=== PATIENT | female | born 1950 | race African-American/Black ===

== ENCOUNTER 2016-10-27 19:19 | Emergency (ER) | payer MEDICARE, SELFPAY ==
[~2016-10-27 19:19] MED LIST: ALEVE220 MG PO; ASAB PO; ASABAYER PO; BUM1 PO; COREG6 PO; COZAAR100 MG PO; CRESTOR20 MG PO; FLONASE NAS; FORTAMET500 MG PO; GLUMETZA500 MG PO; LEXAPRO20 PO; MICARDIS40 PO; MIRALAXPKT PO; PCET PO; SPIRO25 PO; SYMBICORT 80/4.1 INH INH; VENTOLIN HFA INH; WELLXL150 PO; ZYRTEC ALLGY10 MG PO; [UNRECOGNIZED DRUG - REMARK]
[2016-10-27 19:59] LABS: BASOPHILS 0.6 %; BASOPHILS ABSOLUTE 0.04 10/3/uL (0.0-0.16); EOSINOPHILS 11.7 %; ER CBC TAT 0 Hrs 08 Mins; HEMOGLOBIN 10.3 g/dL (12.0-16.0); IMMATURE GRANULOCYTES 0.1 %; IMMATURE GRANULOCYTES ABSOLUTE 0.01 10/3/uL (0.0-0.11); LYMPHOCYTES 43.9 %; LYMPHOCYTES ABSOLUTE 3.01 10/3/uL (0.67-4.30); MEAN CORPUS HGB CONC 33.6 g/dL (32.0-36.0); MEAN CORPUSCULAR HEMOGLOB 28.1 pg (26.0-34.0); MEAN CORPUSCULAR VOLUME 83.7 fL (80-100); MEAN PLATELET VOLUME 11.9 fL (9.2-13.0); MONOCYTES 9.8 %; MONOCYTES ABSOLUTE 0.67 10/3/uL (0.21-1.20); NEUTROPHILS 33.9 %; NEUTROPHILS ABSOLUTE 2.32 10/3/uL (2.02-8.40); PLATELET COUNT 201 10/3/uL (150-400); RBC DISTRIBUTION WIDTH 14.4 % (12.0-16.0); RED CELL COUNT 3.67 10/6/uL (4.0-5.6); WHITE BLOOD CELLS 6.9 10/3/uL (4.5-10.5)
[2016-10-27 20:01] LABS: HEMATOCRIT 30.7 % (36.0-48.0); MANUAL DIFF NO %
[2016-10-27 20:08] LABS: PARTIAL THROMBO TIME 26.9 SEC (22.5-37.2)
[2016-10-27 20:17] LABS: BUN (BLOOD UREA NITROGEN) 13 MG/DL (6-23); CALCIUM, SERUM 8.3 MG/DL (8.5-10.4); CHEST PAIN PROFILE TAT 0 Hrs 26 Mins; CHLORIDE, SERUM 103 MMOL/L (96-112); CO2 (CARBON DIOXIDE) 31 MMOL/L (24-34); CREATININE 1.02 MG/DL (0.55-1.02); GFR AFRICAN AMERICAN 67 ML/MIN (>=60); GFR NON AFRICAN AMERICAN 58 ML/MIN (>=60); GLUCOSE, SERUM 142 MG/DL (60-99); POTASSIUM, SERUM 3.2 MMOL/L (3.5-5.3); SODIUM, SERUM 142 MMOL/L (135-148); TROPONIN I <0.02 NG/ML (<0.05)
== END 2016-10-28 02:00 | disposition home or self-care (01) ==
LOC: ER 19:19
PROVIDERS: Emergency Medicine
DX: G89.18 Other acute postprocedural pain (principal); R07.9 Chest pain, unspecified; L23.7 Allergic contact dermatitis due to plants, except food; Z87.891 Personal history of nicotine dependence; I11.0 Hypertensive heart disease with heart failure; I50.9 Heart failure, unspecified; F32.9 Major depressive disorder, single episode, unspecified; E11.9 Type 2 diabetes mellitus without complications; Z86.73 Personal history of transient ischemic attack (TIA), and cerebral infarction without residual deficits; Z95.5 Presence of coronary angioplasty implant and graft; Z95.1 Presence of aortocoronary bypass graft; Z88.0 Allergy status to penicillin; Z88.8 Allergy status to other drugs, medicaments and biological substances; Z79.899 Other long term (current) drug therapy; Z79.84 Long term (current) use of oral hypoglycemic drugs
CPT/HCPCS: 71020; 71275; 80048; 83735; 84484; 85025; 85610; 85730; 93005; 96374; 99285; Q9967

== ENCOUNTER 2017-03-25 16:40 | Inpatient (IN) | payer MEDICARE ==
[~2017-03-25] VITALS: Ht 154.9 cm; Wt 72.4 kg
--- NOTE | ~2017-03-25 | OP ---
Record Of Operation [facility] [address] [place]. [address] NAME: KANWAL MERCEDES : 52 STATUS : ADM IN PAT#: [id number] AGE: 67 ADM/REG DATE : 03/25/17 MR#: [id number] REPORT SERV DATE: 03/27/17 DICTATED BY: MIKE SANTIAGO DATE: 03/27/17 REPORT STATUS : Draft TRANSCRIBED BY: MODL DATE: 03/27/17 DATE OF PROCEDURE: 03/27/2017 PREPROCEDURE DIAGNOSES: Respiratory failure and massive hemoptysis. POSTPROCEDURE DIAGNOSES: Respiratory failure and massive hemoptysis. PROCEDURE: Bronchoscopy surveillance. DESCRIPTION: Informed consent obtained from the son, both written and verbal. The patient was intubated on the ventilator and sedated, so unable to take consent. All questions were answered. Risks and side effects discussed with the son regarding the procedure. The patient was intubated on the ventilator on Precedex drip at the time of the procedure and not on any vasopressors. Start of the procedure, the patient had an O2 saturation of around 92% to 93%. Gave 4 mL of propofol as well for added sedation. She was on 100% FiO2 and under control mode of ventilation. I inserted the fiberoptic scope and immediately started seeing fresh bright red blood in the ET tube. I was suctioning that back and was able to make my way down to the distal trachea and jennifer and was visualizing copious amounts of bright red in blood that was encompassing both the jennifer and left and right mainstem bronchus. I started to suction some of the blood from the right mainstem bronchus and went into the upper lobe dissection as well and started to go to the right middle lobe and suction to clear the airway. In that amount of time which was less than a couple of minutes, her sats dropped down to 85%, and so I immediately pulled out to help her recover. In fact, we actually took off the ventilator and started bagging her to help get her O2 saturation up. We did a cycle of blood pressure and blood pressure which showed hypotension. We gave her 1 L of fluid bolus and started to mix some Levophed. I did decide at this point to abort the procedure. We were able to get her O2 saturation up into the 90s and her blood pressure did come up on its own without adding Levophed to the point where she was actually hypertensive. Subsequent critical care management is as follows which could be seen in subsequent orders and progress notes. CEP/MODL Mike Santiago, / [id number] CC: Amanda Sahu MD
--- NOTE | ~2017-03-25 | OP ---
Record Of Operation [facility] [address] [place]. [address] NAME: KANWAL MERCEDES : 52 STATUS : ADM IN PAT#: [id number] AGE: 67 ADM/REG DATE : 03/25/17 MR#: [id number] REPORT SERV DATE: 03/27/17 DICTATED BY: BEE CANTOR DATE: 03/27/17 REPORT STATUS : Draft TRANSCRIBED BY: CATALINO DATE: 03/27/17 DATE OF PROCEDURE: PROCEDURE: Placement of left femoral arterial line. REASON: The patient is hypotensive, on pressors; hypoxic respiratory failure, on APRV and needs frequent blood draws and blood gases. Risks and benefits of the procedure were discussed with the patient's family and consent was obtained. DESCRIPTION OF PROCEDURE: The left groin was prepped and draped in a sterile fashion. Lidocaine 1% was used as a local anesthetic. The left femoral artery was located using ultrasound guidance. Large bore needle was inserted into the left femoral artery with good blood return. Guidewire was threaded through the large bore needle, which was then removed and a 12 cm catheter was then placed through the guidewire with removal of the guidewire. The line was sewn in place with 2-0 silk. The catheter was then transduced with good waveform and good blood return. Sterile Biopatch and dressing were applied. /CATALINO Bee Cantor M.D. / [id number] CC: Amanda Sahu MD
--- NOTE | ~2017-03-25 | OP ---
Record Of Operation [facility] [address] [place]. [address] NAME: KANWAL MERCEDES : 52 STATUS : ADM IN [facility]#: [id number] AGE: 67 ADM/REG DATE : 03/25/17 MR#: [id number] REPORT SERV DATE: 04/03/17 DICTATED BY: ETO GAO DATE: 04/03/17 REPORT STATUS : Draft TRANSCRIBED BY: MODL DATE: 04/03/17 DATE OF PROCEDURE: 04/03/2017 TIME: 1245 hours. PROCEDURE: Endotracheal intubation. INDICATION: Acute respiratory failure. Pre-oxygenated 100% oxygen, monitored by blood pressure, EKG, and pulse oximetry. 40 of etomidate, 5 mL of propofol, and 50 mg of rocuronium used. Tube was seen to enter between cords. Confirmed by end-tidal CO2 monitor. Good breath sounds bilaterally. Sat 100%. Post chest x-ray ordered. RP/CATALINO Teo Gao M.D. / [id number] CC: Amanda Sahu MD
--- NOTE | ~2017-03-25 | OP ---
Record Of Operation [facility] [address] [place]. [address] NAME: KANWAL MERCEDES : 52 STATUS : ADM IN PAT#: [id number] AGE: 67 ADM/REG DATE : 03/25/17 MR#: [id number] REPORT SERV DATE: 03/27/17 DICTATED BY: BEE CANTOR DATE: 03/27/17 REPORT STATUS : Draft TRANSCRIBED BY: MODGaurang DATE: 03/27/17 DATE OF PROCEDURE: 03/27/2017 This is a 67-year-old patient, who was intubated for hypoxic respiratory failure secondary to hemoptysis and has become hypotensive and needs better IV access. This is an urgent situation. No consent was obtained from the family. The patient required placement of central line access. DESCRIPTION OF PROCEDURE: The right groin was prepped and draped in sterile fashion. Lidocaine 1% was used as local anesthetic. The right femoral vein was localized using ultrasound guidance. A large bore needle was inserted into the right femoral vein without difficulty and good blood returned. Guidewire was inserted over the large bore needle which was then removed. The site was dilated and a triple-lumen catheter was placed over a guidewire without difficulty. All three ports were flushed and good blood returned. The line was sewn in place with 2-0 silk and sterile Biopatch was applied. Sterile dressing was applied. /CATALINO Bee Cantor M.D. / [id number] CC: Amanda Sahu MD
--- NOTE | ~2017-03-25 | CN ---
Consultation Report [facility] [address] [place]. [address] NAME: KANWAL MERCEDES : 52 STATUS : ADM IN PAT#: [id number] AGE: 67 ADM/REG DATE : 03/25/17 MR#: [id number] REPORT SERV DATE: 03/27/17 DICTATED BY: BEE CANTOR DATE: 03/27/17 REPORT STATUS : Draft TRANSCRIBED BY: MODL DATE: 03/27/17 CONSULTATION DATE OF CONSULTATION: 03/27/2017 HISTORY OF PRESENT ILLNESS: This is a 67-year-old woman, who was admitted to the Hospitalist Service on the 03/26/2017 and has a known history of idiopathic pulmonary fibrosis, UIP, also chronic hypoxic respiratory failure, diastolic heart failure diabetes mellitus, and peripheral vascular disease, presents to the emergency room with hemoptysis of bright red blood. The patient was seen by the Pulmonary Service and it was thought initially that her mild hemoptysis was secondary to traction bronchiectasis. She was not on any blood thinners at home except for aspirin. The patient apparently was also started on cefepime. So, the patient was admitted to a monitored bed and then early on the morning of the 03/27/2017 at about 0530 hours, her hemoptysis worsened and it appears that she may have been hypotensive since she received a liter of bolus of IV fluid and was initially transferred to [facility]. Shortly after arrival to the [facility], the patient was made n.p.o. and there were plans to do a bronchoscopy on her later on the , however her hemoptysis then increased and she was not able to maintain an airway and required intubation, mechanical ventilation, and subsequent transferred to MICU. Upon arrival here, she was hypotensive, required placement of a central line, IV fluid bolus, and Levophed to sustain her blood pressure. After she received a bolus of IV fluids, her blood pressure improved, and she no longer required Levophed. So, currently she is here intubated secondary to hypoxic respiratory failure, gross hemoptysis. She is allergic to penicillins, wasp venom, and buspirone. CURRENT MEDICATIONS: While in the hospital are enteric-coated aspirin, Lipitor, she did receive 1 mg of Bumex daily, Wellbutrin, Coreg, Maxipime, vitamin D, Lexapro, NovoLog insulin sliding scale, Cozaar, Solu-Medrol. She was also on vancomycin and Zosyn. She was also on Esbriet for her pulmonary fibrosis. PAST MEDICAL HISTORY: Significant for: 1. Hypertension. 2. Diabetes mellitus type 2. 3. Coronary artery disease, status post open heart surgery. 4. Pneumonia. 5. Peripheral arterial disease. 6. Idiopathic pulmonary fibrosis with negative markers. 7. Ventral hernia. 8. She is status post hemorrhoidectomy. 9. . 10.Bilateral tubal ligation. 11.Right elbow surgery for severe dislocation. 12.Right hand surgery. FAMILY HISTORY: Significant for sarcoidosis in her son and coronary artery disease. Consultation Report [address] [address] NAME: KANWAL MERCEDES : 52 STATUS : ADM IN [facility]#: [id number] AGE: 67 ADM/REG DATE : 03/25/17 MR#: [id number] REPORT SERV DATE: 03/27/17 DICTATED BY: BEE CANTOR DATE: 03/27/17 REPORT STATUS : Draft TRANSCRIBED BY: CATALINO DATE: 03/27/17 SOCIAL HISTORY: She is . She used to work at [employer], but denies any significant exposures to dust, silica, or asbestos. She has remote history of smoking until 2003 and then quit in 2016. There is no history of alcohol abuse or recreational drug use. REVIEW OF SYSTEMS: Could not be obtained from the patient since she is orally intubated and sedated. PHYSICAL EXAMINATION: GENERAL: The patient is in moderate respiratory distress even intubated and has copious amounts of blood coming out of her endotracheal tube. VITAL SIGNS: Her heart rate is 114, respiratory rate is in the 20s, FiO2 she is on FiO2 of 100 and O2 saturations are in the high 80s to low 90s, blood pressure has been variable and has ranged from 117 systolic, 142 systolic after sedation it did drop to about 70 systolic. Her temperature is 97.6 axillary. SKIN: Warm and dry. HEENT: The head is atraumatic, normocephalic. Pupils are equal, round, and reactive to light and accommodation. Extraocular eye movements are intact. Sclerae anicteric. Conjunctivae are pink. Nasal mucosa is within normal limits. Oral mucosa is intubated. NECK: Supple without JVD, lymphadenopathy, or thyromegaly. LUNGS: Coarse bilateral breath sounds. CARDIAC: Reveals a regular rate and rhythm with no significant murmurs. ABDOMEN: Soft, nondistended. Bowel sounds are present, but diminished. No organosplenomegaly is appreciated. EXTREMITIES: Without cyanosis, clubbing, or edema. RECTAL/GENITAL: Deferred. Moncada is in place. NEUROLOGIC: The patient is able to move all extremities, but is limited secondary to sedation and the patient being intubated. LABORATORY DATA: Chest x-ray showed bilateral infiltrates, diffuse bronchoscopy done at the bedside by Dr. Santiago shows just diffuse hemorrhage throughout both lungs. Procalcitonin is less than 0.05. Sodium is 141, potassium is 3.9, chloride is 109, bicarb is 24, BUN is 27, creatinine is 1.15, glucose is 140, magnesium 2.2, phosphorus 6.3. Lactic acid level is 1.3. White cell count is 15.7, hemoglobin is 11, hematocrit is 34, platelet count is 198,000. PTT is 25, protime is 13.9, INR is 1.1. DIAGNOSTIC DATA: CTA of the chest done on the showed no evidence of pulmonary embolus. No thoracic aortic aneurysm or dissection, stable changes of fibrotic lung disease with peripheral reticulation and honeycombing compatible with UIP pattern, diffuse ground-glass density in the lungs, stable prominence level 6 lymph node measuring 1.5 to 2.3 cm, no other nodules that could be thought of or no other suspicious nodule seen. There is stable cardiomegaly with heavy coronary artery calcification. Echocardiogram done on the 13 of February showed normal left ventricular systolic function with an ejection fraction of 50%, mild inferior wall hypokinesis, [id number] mitral regurgitation with mild left atrial enlargement. No significant change from previous study in 10/2015. Repeat echocardiogram Consultation Report [address] [place]. [address] NAME: KANWAL MERCEDES : 52 STATUS : ADM IN [facility]#: [id number] AGE: 67 ADM/REG DATE : 03/25/17 MR#: [id number] REPORT SERV DATE: 03/27/17 DICTATED BY: BEE CANTOR DATE: 03/27/17 REPORT STATUS : Draft TRANSCRIBED BY: MODL DATE: 03/27/17 has been done this morning and preliminary results show no evidence of worsening of mitral regurgitation, final report is pending. Troponin during this hospitalization peaked at 0.66, currently is 0.15, at this point there is no reason to suspect that the patient has acute coronary artery ischemia, but we will closely follow her status. ASSESSMENT AND PLAN: 1. This is a critically ill patient with massive hemoptysis etiology, not entirely certain, but appears to be diffuse alveolar hemorrhage. The patient has had previous workup for rheumatologic diseases including Maxine's, lupus, and those have been negative. She had an open lung biopsy that confirmed the diagnosis and has been treated by Dr. Santiago as an outpatient with steroids and then Esbriet. Currently, she has developed hypoxic respiratory failure secondary to massive hemoptysis requiring intubation and mechanical ventilation. We did have issues after she arrived to the unit, where she was very difficult to oxygenate, and the plan will be to paralyze her, give factor VIIa, continue high-dose Solu-Medrol, give Lasix, and continue supportive care of the patient. At this point, trying to have take her to Interventional Radiology in this unstable condition would not be knott and we do not have a localized point source of bleeding at the moment. The case has been discussed with Dr. Santiago and so, we will continue steroids as indicated above. We will also repeat rheumatologic workup to see if there is anything different or new. Hopefully, then the hemoptysis will resolve. We will hold aspirin and any other further anticoagulation including DVT prophylaxis and apply SCDs. 2. With regard to her type 2 diabetes mellitus, we will continue sliding scale insulin. 3. UIP with traction bronchiectasis, currently on antibiotics. The procalcitonin is less than 0.05, hence we will discontinue the Vanco and then observe and then probably discontinue the cefepime as well. 4. Coronary artery disease. Echocardiogram performed. Awaiting final results. Does not appear to have ongoing ischemia at this time, but we will observe closely for any appearance of that of ischemia. Total time spent with the patient including bedside updating family was a total of 225 minutes commencing at 0645 a.m. and ending at 1000 a.m. For a total time of 225 minutes, 74 minutes for the first portion of her critical care time charge and then minus 10 minutes for placement of central line leading a 141 minutes. That would be charged at 30 minutes intervals of 30 minutes. The patient is in critical condition, respiratory failure with the potential for cardiac decompensation, renal decompensation, and neurologic decompensation. She needs frequent vent adjustments, adjustments of pressors, management of her lab abnormalities. She requires frequent adjustments of the ventilator, medications, and constant monitoring to prevent any further decompensation. /CATALINO Bee Cantor M.D. Consultation Report [address] [address] NAME: KANWAL MERCEDES : 52 STATUS : ADM IN [facility]#: [id number] AGE: 67 ADM/REG DATE : 03/25/17 MR#: [id number] REPORT SERV DATE: 03/27/17 DICTATED BY: BEE CANTOR DATE: 03/27/17 REPORT STATUS : Draft TRANSCRIBED BY: CATALINO DATE: 03/27/17 / [id number] CC: Amanda Sahu MD
--- NOTE | ~2017-03-25 | OP ---
Record Of Operation [facility] [address] [place]. [address] NAME: KANWAL MERCEDES : 52 STATUS : ADM IN PAT#: [id number] AGE: 67 ADM/REG DATE : 03/25/17 MR#: [id number] REPORT SERV DATE: 03/27/17 DICTATED BY: EBENEZER LUNA DATE: 03/27/17 REPORT STATUS : Draft TRANSCRIBED BY: MODL DATE: 03/27/17 DATE OF PROCEDURE: 03/27/2017 PULMONARY AND CRITICAL CARE MEDICINE INTUBATION NOTE. REASON FOR INTUBATION: Acute hypoxemic respiratory failure and hemoptysis. PREMEDICATION: Etomidate 20 mg IV x1 and rocuronium 50 mg IV x1 followed by propofol 5 mL x1. CONSENT: Emergent. PROCEDURE IN DETAIL: After being moved from intermediate care by Dr. Robert, Ms. Mercedes was briefly seen and noted to be hypoxemic with a sat in the mid 70s on 100% non-rebreather with active hemoptysis filling a coffee cup. She was premedicated with the above and emergently intubated using a #3 GlideScope which had been pre lubricated and a size 8.0 ET tube which had also been pre lubricated. There was a copious amount of bright red blood in her mouth and overlying her vocal cords, which was suctioned using the [place] catheter and the tube was passed to a depth of 22 cm at the lips on first attempt. Of note, she did become quite hypoxemic after intubation and her lowest sat was 61%, which improved with bagging and suctioning of the endotracheal tube which had filled with bright red blood immediately after it was placed. A followup chest x-ray pending at the time of this dictation. There was positive color change on the CO2 detector bilateral breath sounds and absent breath sounds over the fundus of the stomach with bagging after intubation. AZEEM/CATALINO Ebenezer Luna MD / [id number] CC: Ebenezer Luna MD
--- NOTE | ~2017-03-25 | HP ---
History And Physical [place] [id number] [facility] [place]. [address] NAME: KANWAL MERCEDES : 52 STATUS : ADM IN [facility]#: [id number] AGE: 67 ADM/REG DATE : 03/25/17 MR#: [id number] REPORT SERV DATE: 03/26/17 DICTATED BY: HERMES RAJAN DATE: 03/25/17 REPORT STATUS : Draft TRANSCRIBED BY: MODGaurang DATE: 03/25/17 DATE OF ADMISSION: 03/25/2017 CHIEF COMPLAINT: Coughing of bright red blood and shortness of breath. HISTORY OF PRESENT ILLNESS: This is a 67-year-old female with history of idiopathic pulmonary fibrosis, usual interstitial pneumonia, also has chronic hypoxic respiratory failure, diastolic heart failure, diabetes mellitus, and peripheral vascular disease, who presents to the emergency room at [facility] with the above- mentioned complaint. History is obtained from the patient and reviewing data available on the [employer] system. According to available data, Ms Mercedes had been in her usual state of health until about two days ago. She does have a chronic cough productive of thick viscid sputum, but in the last two days, she has seen bright red blood in it. She says this actually followed severe bout of coughing that she had two days ago. She describes it as less than a teaspoon full when she has it. Today, she was speaking to her Pulmonary physician's office and she had mentioned it to them. They called back and wanted her to go to the emergency room to be evaluated right away. During this time she has not had any fevers, chills, or any other symptoms. In the emergency room, she did have some hemoptysis, small volume, initial workup also revealed she had an elevated troponin level as well, and Hospitalist Service is asked to admit her for further evaluation and treatment. At the time of my evaluation, she denied any chest pain or palpitations. She had no orthopnea. She did have a cough productive of small volume hemoptysis. She has not had any fevers, chills, or weight loss. She denied any recent falls or loss of consciousness. No history of fevers, chills, nausea, vomiting, diarrhea, or dysuria. No history of recent hematemesis, hematochezia, or hematuria. No other history of recent travel or exposures other than those mentioned above. PAST MEDICAL HISTORY: Significant for usual interstitial pneumonia with interstitial pulmonary fibrosis, coronary artery disease, history of chronic hypoxic respiratory failure for which she uses supplemental oxygen at home on an as-needed basis. She also has diastolic heart failure, diabetes mellitus type 2, peripheral vascular disease, and a history of substance abuse. SOCIAL HISTORY: She has a long history of smoking, but quit in 2003, since then she had taken up marijuana which she also quit in 2016. Since then, she has had not smoked. She uses alcohol occasionally. Denied any other recreational drugs other than those mentioned above. FAMILY HISTORY: Noncontributory. MEDICATIONS: Her medications at home were reviewed by me in the chart today and reordered by History And Physical [address] [address] NAME: KANWAL MERCEDES : 52 STATUS : ADM IN PAT#: [id number] AGE: 67 ADM/REG DATE : 03/25/17 MR#: [id number] REPORT SERV DATE: 03/26/17 DICTATED BY: HERMES RAJAN DATE: 03/25/17 REPORT STATUS : Draft TRANSCRIBED BY: CATALINO DATE: 03/25/17 me. REVIEW OF SYSTEMS: As in history of present illness. All other systems were reviewed in detail and are quite unremarkable. PHYSICAL EXAMINATION: GENERAL: This is a pleasant 67-year-old not in any acute distress. HEENT: Her head is atraumatic and normocephalic. She is alert, awake, oriented to time, place, and person. Pupils are equal, reacting to light and accommodating. External ocular muscles are intact. Membranes are moist and pink. Sclerae are nonicteric. NECK: Supple with no jugular venous distention, lymphadenopathy, or thyromegaly. LUNGS: Auscultation of her lungs revealed fair to moderate air entry bilaterally with bibasilar rales. There were no expiratory wheezes. Trachea appeared to be in the midline. HEART: Auscultation of her heart revealed normal rate and rhythm with no murmurs, rubs, or gallops appreciated. ABDOMEN: Soft and nontender. Bowel sounds are present. EXTREMITIES: No cyanosis, clubbing, or edema. NEURO: Grossly intact. No focal sensory or motor deficits. Higher functions appeared intact. Gait was not examined. She was able to move all four extremities. VITAL SIGNS: Her temperature was 97.6, pulse 78, respirations 16 a minute, blood pressure was 146/79, and oxygen saturations were 96% breathing 2 L of oxygen via nasal cannula. LABORATORY DATA: Reviewed on the [employer] system showed a normal CMP with a creatinine of 1.08, which is about her baseline. Her troponin was 0.66 today. CBC showed a normal white blood cell count, hemoglobin 11.3, hematocrit of 34, and platelet count was 171,000. Urinalysis was not performed today. Films of the CT of the chest were reviewed by me on the PACS today and interpreted by me. Per my interpretation, there are bilateral subpleural fibrosis with bibasilar fibrosis and traction bronchiectasis in the bases as well. No other lobar consolidations or effusions are seen. IMPRESSION: 1. Hemoptysis. 2. Elevated troponin. 3. Chest pain. 4. Acute exacerbation of interstitial pulmonary fibrosis and usual interstitial pneumonia. 5. Chronic hypoxic respiratory failure. 6. Diastolic congestive heart failure. 7. Diabetes mellitus type 2. 8. Coronary artery disease. History And Physical [address] [address] NAME: KANWAL MERCEDES : 52 STATUS : ADM IN [facility]#: [id number] AGE: 67 ADM/REG DATE : 03/25/17 MR#: [id number] REPORT SERV DATE: 03/26/17 DICTATED BY: HERMES RAJAN DATE: 03/25/17 REPORT STATUS : Draft TRANSCRIBED BY: MODGaurang DATE: 03/25/17 PLAN: We will admit Ms Mercedes to the Hospitalist Service with telemetry for close monitoring. Her hemoptysis is probably secondary to her traction bronchiectasis and fibrosis. We will start her on empiric IV antibiotics, bronchodilators, and continue her supplemental oxygen therapy. We will also start her on intravenous steroids for acute exacerbation of her interstitial pulmonary fibrosis and UIP. We will also place her on blood sugar control with NovoLog given subcutaneously per sliding scale, and continue all other medications and treatments that she has been on including Pirfenidone. We will also follow serial troponins to rule out acute coronary syndrome, although this may be secondary to demand ischemia. Due to her pulmonary hemorrhaging we cannot start any heparin products at this time anyway. If necessary, we may go ahead and consult Cardiology Service to see her tomorrow. We will be placing her on SCDs and thromboembolic deterrent stockings for tonight for DVT prophylaxis. We will also consult Dr. Santiago, her field court researcher, to see her in the morning. I have discussed the above plans with the patient. Her questions were answered and she is agreeable to the above recommendations. /CATALINO Hermes Rajan M.D. / [id number] CC: Joshua Diaz MD
--- NOTE | ~2017-03-25 | CN ---
Consultation Report [facility] [address] [place]. [address] NAME: DIANE MERCEDES : 52 STATUS : ADM IN PAT#: [id number] AGE: 67 ADM/REG DATE : 03/25/17 MR#: [id number] REPORT SERV DATE: 03/26/17 DICTATED BY: MORALES BARAHONA DATE: 03/26/17 REPORT STATUS : Draft TRANSCRIBED BY: MODL DATE: 03/26/17 CONSULT NOTE DATE OF CONSULTATION: 03/26/2017 CHIEF COMPLAINT: Hemoptysis in a patient with idiopathic pulmonary fibrosis. HISTORY OF PRESENT ILLNESS: Mrs. Diane Mercedes is a very pleasant 67-year-old female with a past medical history significant for idiopathic pulmonary fibrosis, currently on an antifibrotic, coronary artery disease, status post CABG, and peripheral vascular disease, who presents to [facility]'s Emergency Room with complaints of mild hemoptysis. It should be noted that the patient has not been hospitalized recently and has done fairly well as an outpatient. Mrs. Mercedes is followed by Dr. Santiago in our outpatient clinic. She does have nebulized medications that she takes periodically for her breathing. She is unable to name the specific agents today. The patient does have supplemental oxygen at home, which she uses on an as-needed basis. The patient quit smoking in 2003, prior to this time, she smoked approximately two and half packs a day for a period of twenty years. She has smoked marijuana in the past. The patient does have known obstructive sleep apnea, but does not currently wear her CPAP machine at hour of sleep. She states that her exercise tolerance is somewhat limited, being able to walk approximately half a city block before experiencing some degree of shortness of breath. Again, Mrs. Mercedes is familiar to our Pulmonary Service. She was seen in 2016 in the hospital and was eventually diagnosed with idiopathic pulmonary fibrosis. She has been initiated on an antifibrotic agent. She has had some dermatologic issues with the medication and her dosages have been lowered. Otherwise, she has been tolerating the medications well. More recently, she had a strong coughing fit, which produced a quarter- size amount of bright red blood on the tissue. She contacted our office and was referred to the emergency room for further assessment. Upon arrival, the patient was found to be normotensive and afebrile. She had good oxygenation on room air. Initial blood work revealed a white blood cell count of 5100. CTA of the chest was performed, which did not reveal any PE. Traction bronchiectasis and fibrotic changes were noted. There is some stable mediastinal lymph nodes appreciated as well. There is some basilar atelectasis or possible edema appreciated as well. For the aforementioned reasons, she has been referred to the Pulmonary Service for further assessment. Currently, Mrs. Mercedes has not hemoptysed this morning. She states that she is breathing without difficulty. She denies any wheezing or worsening shortness of breath. She denies any pleuritic pain. She is not producing any purulent sputum. Consultation Report [place] [id number] [facility] [place]. [address] NAME: DIANE MERCEDES : 52 STATUS : ADM IN [facility]#: [id number] AGE: 67 ADM/REG DATE : 03/25/17 MR#: [id number] REPORT SERV DATE: 03/26/17 DICTATED BY: MORALES BARAHONA DATE: 03/26/17 REPORT STATUS : Draft TRANSCRIBED BY: CATALINO DATE: 03/26/17 The patient does have known cardiac issues including coronary artery disease, some mild-to- moderate mitral regurgitation. She does have known hypertension. She currently denies any murmurs, angina, or palpitations. She denies any orthopnea or dependent edema. In regard to constitutional symptoms, she currently denies fever, chills, nausea, vomiting, chest pain, abdominal pain, or edema. PAST MEDICAL HISTORY: 1. Coronary artery disease, status post CABG. 2. Hypertension. 3. Diabetes mellitus. 4. Peripheral arterial disease. 5. Pneumonia. 6. Idiopathic pulmonary fibrosis. 7. Ventral hernia. PAST SURGICAL HISTORY: 1. CABG. 2. Hemorrhoidectomy. 3. . 4. Bilateral tubal ligation. 5. Right elbow surgery for severe dislocation. 6. Right hand surgery. FAMILY HISTORY: The patient states that her son has sarcoidosis. There is also a strong family history of coronary artery disease. SOCIAL HISTORY: The patient is . She previously worked at [employer] and denies any known exposures to dust, silica, or asbestos. TOBACCO/ALCOHOL: As previously mentioned, the patient quit smoking in 2003, prior to this time, she smoked approximately two and half packs a day for a period of twenty years. She does use marijuana in the past. She denies any other illicit drug use or excessive alcohol use. MEDICATIONS: Aspirin 81 mg, Bumex 1 mg, bupropion 150 mg, carvedilol 6.25 mg, Lexapro 20 mg, loratadine 10 mg, losartan 100 mg, metformin 500 mg, Esbriet 267 mg, rosuvastatin 20 mg, spironolactone 25 mg. ALLERGIES: THE PATIENT HAS KNOWN ALLERGY TO PENICILLIN. REVIEW OF SYSTEMS: A complete review of systems was performed with pertinent positives and negatives contained within the body of the HPI. Consultation Report [place] [id number] [place]. [address] NAME: DIANE MERCEDES : 52 STATUS : ADM IN [facility]#: [id number] AGE: 67 ADM/REG DATE : 03/25/17 MR#: [id number] REPORT SERV DATE: 03/26/17 DICTATED BY: MORALES BARAHONA DATE: 03/26/17 REPORT STATUS : Draft TRANSCRIBED BY: CATALINO DATE: 03/26/17 PHYSICAL EXAMINATION: VITAL SIGNS: Blood pressure is 114/69, heart rate 76, T-max is 96.6, respiratory rate is 18, SpO2 is 98% on room air. GENERAL: Mrs. Diane Mercedes is a very pleasant 67-year-old, female, who is not currently exhibiting any signs of acute distress. SKIN: Skin with appropriate texture, turgor. No rashes, lesions, or ulcers. HEENT: Head: Skull is normocephalic, atraumatic. Eyes: Sclerae anicteric. Ears: Auricles and tragus without pain to palpation. Nose: Bilateral nasal patency. Throat: The patient is edentulous in the uppers. NECK: Neck is supple. Trachea midline. No cervical lymphadenopathy appreciated. THORAX/LUNGS: Clear breath sounds throughout. CARDIOVASCULAR: Regular rate and rhythm. No murmurs, rubs, or gallops. Anterior chest without thrills, heaves, or lifts. ABDOMEN: Abdomen is soft, nontender. Ventral hernia appreciated. PERIPHERAL VASCULAR: No edema. Varicosities are appreciated, MUSCULOSKELETAL: Full AROM and PROM in all joints. NEUROLOGIC: Cranial nerves 2-12 grossly intact. PSYCHIATRIC: The patient is alert and oriented x3. ACCESSORY DATA: Reveals a potassium of 3.4, magnesium and phos are low, creatinine is 1.17. White blood cell count is 5200. Lung biopsy confirms a pattern consistent with usual interstitial pneumonitis. Echocardiogram reveals a left ventricular ejection fraction of 50% as well as some [id number] mitral regurg. IMPRESSION: 1. Mild hemoptysis. 2. Idiopathic pulmonary fibrosis. 3. Demand ischemia. 4. [id number] mitral regurg. PLAN: 1. At this time, her hemoptysis is likely secondary to her traction bronchiectasis as a result of her idiopathic pulmonary fibrosis. Her anticoagulation has been held currently. We will certainly surveil her moving forward for continuing hemoptysis. That being said, I do not think we need to pursue bronchoscopy today. 2. In regard to the patient's idiopathic pulmonary fibrosis, it is not entirely clear that she is having an exacerbation today. We will attempt to transition her to p.o. steroids. We will check a procalcitonin in hopes to deescalate her antibiotics. She will continue her antifibrotic agents. We will move her outpatient followup forward as we want to follow her closely. 3. In regard to the patient's elevated troponin, this is likely secondary to demand ischemia. That being said, Cardiology is scheduled to see the patient today. 4. The patient does have some electrolyte abnormalities, which we will correct today. The aforementioned impression and plan have been discussed with Dr. Garcia, who will follow further recommendations. Consultation Report [address] [place]. [address] NAME: DAINE MERCEDES : 52 STATUS : ADM IN [facility]#: [id number] AGE: 67 ADM/REG DATE : 03/25/17 MR#: [id number] REPORT SERV DATE: 03/26/17 DICTATED BY: MORALES BARAHONA DATE: 03/26/17 REPORT STATUS : Draft TRANSCRIBED BY: MODL DATE: 03/26/17 We thank you for this consult and look forward to participating in the care of Mrs. Diane Mercedes. XANDER/MODL Morales Barahona PA-C / [id number] CC: Joshua Diaz MD
[2017-03-25 19:18] LABS: BASOPHILS 0.8 %; BASOPHILS ABSOLUTE 0.04 10/3/uL (0.0-0.16); EOSINOPHILS 9.3 %; EOSINOPHILS ABSOLUTE 0.48 10/3/uL (0.0-0.53); ER CBC TAT 0 Hrs 11 Mins; HEMOGLOBIN 11.3 g/dL (12.0-16.0); IMMATURE GRANULOCYTES 0.2 %; IMMATURE GRANULOCYTES ABSOLUTE 0.01 10/3/uL (0.0-0.11); LYMPHOCYTES 45.9 %; LYMPHOCYTES ABSOLUTE 2.36 10/3/uL (0.67-4.30); MEAN CORPUS HGB CONC 33.2 g/dL (32.0-36.0); MEAN CORPUSCULAR HEMOGLOB 27.6 pg (26.0-34.0); MEAN CORPUSCULAR VOLUME 82.9 fL (80-100); MONOCYTES 11.7 %; NEUTROPHILS 32.1 %; NEUTROPHILS ABSOLUTE 1.65 10/3/uL (2.02-8.40); PLATELET COUNT 171 10/3/uL (150-400); RBC DISTRIBUTION WIDTH 14.1 % (12.0-16.0); WHITE BLOOD CELLS 5.1 10/3/uL (4.5-10.5)
[2017-03-25 19:19] LABS: MANUAL DIFF NO %
[2017-03-25 19:39] LABS: A/G RATIO 0.9 (0.7-1.9); ALBUMIN 3.8 G/DL (3.5-5.0); ALKALINE PHOSPHATASE 79 U/L (45-117); BUN (BLOOD UREA NITROGEN) 20 MG/DL (6-23); CALCIUM, SERUM 8.4 MG/DL (8.5-10.4); CHLORIDE, SERUM 104 MMOL/L (96-112); CO2 (CARBON DIOXIDE) 30 MMOL/L (24-34); CREATININE 1.08 MG/DL (0.55-1.02); GFR AFRICAN AMERICAN 62 ML/MIN (>=60); GFR NON AFRICAN AMERICAN 53 ML/MIN (>=60); GLOBULIN 4.2 G/DL (2.5-4.1); SGPT(ALT) 35 U/L (5-65); SODIUM, SERUM 140 MMOL/L (135-148); TOTAL BILIRUBIN 0.6 MG/DL (0-1.2)
[2017-03-25 19:40] LABS: GLUCOSE, SERUM 72 MG/DL (60-99); POTASSIUM, SERUM 4.2 MMOL/L (3.5-5.3); SGOT(AST) 42 U/L (5-40)
[2017-03-25 19:42] LABS: TROPONIN I 0.66 NG/ML (<0.05)
[2017-03-25] MEDS ORDERED: BUM1 PO (21:02)
[2017-03-25] MEDS ORDERED: FORTAMET500 MG PO (21:02)
[2017-03-25] MEDS ORDERED: COREG6 PO (21:02)
[2017-03-25] MEDS ORDERED: SPIRO25 PO (21:02)
[2017-03-25] MEDS ORDERED: WELLXL150 PO (21:03)
[2017-03-25] MEDS ORDERED: HALF81 PO (21:03)
[2017-03-25] MEDS ORDERED: COZAAR100 MG PO (21:03)
[2017-03-25] MEDS ORDERED: LEXAPRO20 PO (21:04)
[2017-03-25] MEDS ORDERED: CRESTOR20 MG PO (21:04)
[2017-03-25] MEDS ORDERED: FLONASE NAS (21:04)
[2017-03-25] MEDS ORDERED: ESBRIET267C PO (21:05)
[2017-03-25] MEDS ORDERED: VITAMIN D31000 UNIT PO (21:05)
[2017-03-25] MEDS ORDERED: TRIAMCINOLONE C80 GM TOP (21:06)
[2017-03-25] MEDS ORDERED: CLARIT10 PO (21:07)
[2017-03-26 03:37] LABS: BASOPHILS 0.4 %; BASOPHILS ABSOLUTE 0.02 10/3/uL (0.0-0.16); EOSINOPHILS 3.7 %; EOSINOPHILS ABSOLUTE 0.19 10/3/uL (0.0-0.53); HEMATOCRIT 35.5 % (36.0-48.0); HEMOGLOBIN 11.6 g/dL (12.0-16.0); IMMATURE GRANULOCYTES 0.2 %; IMMATURE GRANULOCYTES ABSOLUTE 0.01 10/3/uL (0.0-0.11); LYMPHOCYTES 28.7 %; LYMPHOCYTES ABSOLUTE 1.49 10/3/uL (0.67-4.30); MEAN CORPUS HGB CONC 32.7 g/dL (32.0-36.0); MEAN CORPUSCULAR HEMOGLOB 27.1 pg (26.0-34.0); MEAN CORPUSCULAR VOLUME 82.9 fL (80-100); MEAN PLATELET VOLUME 11.3 fL (9.2-13.0); MONOCYTES 5.2 %; MONOCYTES ABSOLUTE 0.27 10/3/uL (0.21-1.20); NEUTROPHILS 61.8 %; NEUTROPHILS ABSOLUTE 3.21 10/3/uL (2.02-8.40); PLATELET COUNT 167 10/3/uL (150-400); RBC DISTRIBUTION WIDTH 14.3 % (12.0-16.0); RED CELL COUNT 4.28 10/6/uL (4.0-5.6); WHITE BLOOD CELLS 5.2 10/3/uL (4.5-10.5)
[2017-03-26 03:38] LABS: MANUAL DIFF NO %
[2017-03-26 04:02] LABS: CK-MB 1.6 NG/ML; CPK 172 U/L (0-200); PHOSPHORUS, SERUM 1.9 MG/DL (2.5-4.5); TROPONIN I 0.32 NG/ML (<0.05)
[2017-03-26 04:16] LABS: BUN (BLOOD UREA NITROGEN) 19 MG/DL (6-23); CALCIUM, SERUM 8.9 MG/DL (8.5-10.4); CHLORIDE, SERUM 104 MMOL/L (96-112); CO2 (CARBON DIOXIDE) 31 MMOL/L (24-34); CREATININE 1.17 MG/DL (0.55-1.02); GFR AFRICAN AMERICAN 56 ML/MIN (>=60); GFR NON AFRICAN AMERICAN 49 ML/MIN (>=60); POTASSIUM, SERUM 3.4 MMOL/L (3.5-5.3); SODIUM, SERUM 139 MMOL/L (135-148)
[2017-03-26 04:21] LABS: GLUCOSE, SERUM 134 MG/DL (60-99)
[2017-03-26 10:06] LABS: PROCALCITONIN 0.06 ng/mL (<0.5)
[2017-03-26 11:28] LABS: CPK 166 U/L (0-200)
[2017-03-26 11:30] LABS: CK-MB 1.3 NG/ML; TROPONIN I 0.15 NG/ML (<0.05)
[2017-03-27 05:19] LABS: BASOPHILS 0.1 %; BASOPHILS ABSOLUTE 0.01 10/3/uL (0.0-0.16); EOSINOPHILS 0.1 %; EOSINOPHILS ABSOLUTE 0.01 10/3/uL (0.0-0.53); HEMATOCRIT 33.6 % (36.0-48.0); IMMATURE GRANULOCYTES 0.3 %; IMMATURE GRANULOCYTES ABSOLUTE 0.04 10/3/uL (0.0-0.11); LYMPHOCYTES 12.1 %; MEAN CORPUS HGB CONC 32.7 g/dL (32.0-36.0); MEAN CORPUSCULAR HEMOGLOB 27.2 pg (26.0-34.0); MEAN PLATELET VOLUME 12.1 fL (9.2-13.0); MONOCYTES 10.9 %; MONOCYTES ABSOLUTE 1.72 10/3/uL (0.21-1.20); NEUTROPHILS 76.5 %; NEUTROPHILS ABSOLUTE 12.05 10/3/uL (2.02-8.40); PLATELET COUNT 188 10/3/uL (150-400); RBC DISTRIBUTION WIDTH 14.5 % (12.0-16.0); RED CELL COUNT 4.05 10/6/uL (4.0-5.6)
[2017-03-27 05:22] LABS: MANUAL DIFF NO %; WHITE BLOOD CELLS 15.7 10/3/uL (4.5-10.5)
[2017-03-27 05:36] LABS: CHLORIDE, SERUM 107 MMOL/L (96-112); CREATININE 1.35 MG/DL (0.55-1.02); GFR AFRICAN AMERICAN 47 ML/MIN (>=60); GFR NON AFRICAN AMERICAN 41 ML/MIN (>=60); GLUCOSE, SERUM 129 MG/DL (60-99); POTASSIUM, SERUM 3.6 MMOL/L (3.5-5.3); SODIUM, SERUM 141 MMOL/L (135-148)
[2017-03-27 05:37] LABS: BUN (BLOOD UREA NITROGEN) 27 MG/DL (6-23); CO2 (CARBON DIOXIDE) 25 MMOL/L (24-34)
[2017-03-27 05:52] LABS: A/G RATIO 0.9 (0.7-1.9); ALBUMIN 3.4 G/DL (3.5-5.0); ALKALINE PHOSPHATASE 73 U/L (45-117); GLOBULIN 3.8 G/DL (2.5-4.1); SGOT(AST) 55 U/L (5-40); SGPT(ALT) 48 U/L (5-65); TOTAL BILIRUBIN 0.6 MG/DL (0-1.2); TOTAL PROTEIN 7.2 G/DL (6.0-8.5)
[2017-03-27 07:37] LABS: BASOPHILS 0.1 %; BASOPHILS ABSOLUTE 0.02 10/3/uL (0.0-0.16); EOSINOPHILS 0.1 %; EOSINOPHILS ABSOLUTE 0.02 10/3/uL (0.0-0.53); HEMATOCRIT 34.4 % (36.0-48.0); HEMOGLOBIN 11.2 g/dL (12.0-16.0); IMMATURE GRANULOCYTES 0.3 %; IMMATURE GRANULOCYTES ABSOLUTE 0.05 10/3/uL (0.0-0.11); LYMPHOCYTES ABSOLUTE 2.83 10/3/uL (0.67-4.30); MEAN CORPUS HGB CONC 32.6 g/dL (32.0-36.0); MEAN CORPUSCULAR VOLUME 82.9 fL (80-100); MEAN PLATELET VOLUME 11.3 fL (9.2-13.0); MONOCYTES 11.8 %; MONOCYTES ABSOLUTE 1.85 10/3/uL (0.21-1.20); NEUTROPHILS 69.7 %; NEUTROPHILS ABSOLUTE 10.91 10/3/uL (2.02-8.40); PLATELET COUNT 198 10/3/uL (150-400); RBC DISTRIBUTION WIDTH 14.7 % (12.0-16.0); RED CELL COUNT 4.15 10/6/uL (4.0-5.6); WHITE BLOOD CELLS 15.7 10/3/uL (4.5-10.5)
[2017-03-27 07:38] LABS: MANUAL DIFF NO %
[2017-03-27 07:45] LABS: INTERNATIONAL NORMAL RATI 1.1 UNITS (-); PARTIAL THROMBO TIME 25.2 SEC (22.5-37.2); PROTIME (NOT ORD) 13.8 SEC (12.0-14.5)
[2017-03-27 07:56] LABS: LACTATE 1.3 MMOL/L (0.3-2.4)
[2017-03-27 07:58] LABS: BUN (BLOOD UREA NITROGEN) 27 MG/DL (6-23); CALCIUM, SERUM 7.6 MG/DL (8.5-10.4); CHLORIDE, SERUM 109 MMOL/L (96-112); CO2 (CARBON DIOXIDE) 24 MMOL/L (24-34); CREATININE 1.15 MG/DL (0.55-1.02); GFR AFRICAN AMERICAN 57 ML/MIN (>=60); GFR NON AFRICAN AMERICAN 50 ML/MIN (>=60); GLUCOSE, SERUM 140 MG/DL (60-99); PHOSPHORUS, SERUM 6.3 MG/DL (2.5-4.5); POTASSIUM, SERUM 3.9 MMOL/L (3.5-5.3); SODIUM, SERUM 141 MMOL/L (135-148)
[2017-03-27 08:06] LABS: PROCALCITONIN <0.05 ng/mL (<0.5)
[2017-03-27 09:57] LABS: BE (BASE EXCESS) -2.3 MEQ/L (0 +/- 2.5); CARBOXYHEMOGLOBIN 0.7 % (0-3); HCO3 (ACTUAL BICARBONATE) 22.7 MEQ/L (23-27); HEMOBLOGIN CONTENT 12.2 G/DL (12-16); INSTRUMENT SERIAL # 8083; METHEMOGLOBIN 0.1 % (0-3); O2 CONTENT 15.6 VOL% (18-24); PCO2 (CO2 TENSION) 40 MMHG (35-45); PO2 (O2 TENSION) 63 MMHG (79-93); pH 7.38 (7.37-7.43)
[2017-03-27 09:58] LABS: ALLENS TEST Pos; MODE APRV; OPERATOR ID 35784; SAMPLE Arterial
[2017-03-27 13:19] LABS: BASOPHILS 0.1 %; BASOPHILS ABSOLUTE 0.01 10/3/uL (0.0-0.16); EOSINOPHILS 0 %; HEMATOCRIT 36.9 % (36.0-48.0); IMMATURE GRANULOCYTES 0.2 %; IMMATURE GRANULOCYTES ABSOLUTE 0.02 10/3/uL (0.0-0.11); LYMPHOCYTES 7.3 %; LYMPHOCYTES ABSOLUTE 0.87 10/3/uL (0.67-4.30); MEAN CORPUS HGB CONC 32.5 g/dL (32.0-36.0); MEAN CORPUSCULAR VOLUME 82.9 fL (80-100); MEAN PLATELET VOLUME 11.2 fL (9.2-13.0); MONOCYTES 8.7 %; MONOCYTES ABSOLUTE 1.04 10/3/uL (0.21-1.20); NEUTROPHILS 83.7 %; NEUTROPHILS ABSOLUTE 10.03 10/3/uL (2.02-8.40); PLATELET COUNT 153 10/3/uL (150-400); RBC DISTRIBUTION WIDTH 14.8 % (12.0-16.0); RED CELL COUNT 4.45 10/6/uL (4.0-5.6)
[2017-03-27 13:20] LABS: MANUAL DIFF NO %
[2017-03-27 13:33] LABS: COMPLEMENT C4 20.2 MG/DL (16-47)
[2017-03-27 13:34] LABS: PHOSPHORUS, SERUM 4.9 MG/DL (2.5-4.5)
[2017-03-27 14:11] LABS: SED RATE 16 MM/HR (0-20)
[2017-03-27 15:11] LABS: INSTRUMENT SERIAL # 8083; pH 7.44 (7.37-7.43)
[2017-03-27 15:12] LABS: CARBOXYHEMOGLOBIN 0.4 % (0-3); HCO3 (ACTUAL BICARBONATE) 19.1 MEQ/L (23-27); HEMOBLOGIN CONTENT 12.4 G/DL (12-16); METHEMOGLOBIN 0.2 % (0-3); MODE APRV; PCO2 (CO2 TENSION) 29 MMHG (35-45); PO2 (O2 TENSION) 65 MMHG (79-93); SAMPLE Arterial
[2017-03-27 15:38] LABS: BASOPHILS 0 %; EOSINOPHILS 0 %; HEMATOCRIT 34.1 % (36.0-48.0); HEMOGLOBIN 11.5 g/dL (12.0-16.0); IMMATURE GRANULOCYTES 0.3 %; IMMATURE GRANULOCYTES ABSOLUTE 0.03 10/3/uL (0.0-0.11); LYMPHOCYTES 6.1 %; LYMPHOCYTES ABSOLUTE 0.72 10/3/uL (0.67-4.30); MEAN CORPUS HGB CONC 33.7 g/dL (32.0-36.0); MEAN CORPUSCULAR HEMOGLOB 27.6 pg (26.0-34.0); MEAN CORPUSCULAR VOLUME 81.8 fL (80-100); MEAN PLATELET VOLUME 11.4 fL (9.2-13.0); MONOCYTES 9.4 %; MONOCYTES ABSOLUTE 1.11 10/3/uL (0.21-1.20); NEUTROPHILS 84.2 %; NEUTROPHILS ABSOLUTE 9.91 10/3/uL (2.02-8.40); PLATELET COUNT 150 10/3/uL (150-400); RBC DISTRIBUTION WIDTH 14.5 % (12.0-16.0); RED CELL COUNT 4.17 10/6/uL (4.0-5.6); WHITE BLOOD CELLS 11.8 10/3/uL (4.5-10.5)
[2017-03-27 15:39] LABS: MANUAL DIFF NO %
[2017-03-27 15:58] LABS: BUN (BLOOD UREA NITROGEN) 29 MG/DL (6-23); CHLORIDE, SERUM 106 MMOL/L (96-112); CO2 (CARBON DIOXIDE) 22 MMOL/L (24-34); CREATININE 1.31 MG/DL (0.55-1.02); GFR AFRICAN AMERICAN 49 ML/MIN (>=60); GFR NON AFRICAN AMERICAN 42 ML/MIN (>=60); PHOSPHORUS, SERUM 4.7 MG/DL (2.5-4.5); POTASSIUM, SERUM 3.7 MMOL/L (3.5-5.3); SODIUM, SERUM 138 MMOL/L (135-148)
[2017-03-27 15:59] LABS: GLUCOSE, SERUM 249 MG/DL (60-99)
[2017-03-27 20:17] LABS: BE (BASE EXCESS) -6.1 MEQ/L (0 +/- 2.5); CARBOXYHEMOGLOBIN 0.6 % (0-3); HCO3 (ACTUAL BICARBONATE) 18.2 MEQ/L (23-27); HEMOBLOGIN CONTENT 12.8 G/DL (12-16); INSTRUMENT SERIAL # 8083; METHEMOGLOBIN 0.2 % (0-3); MODE APRV; O2 CONTENT 16.5 VOL% (18-24); OPERATOR ID 16503; PCO2 (CO2 TENSION) 32 MMHG (35-45); PO2 (O2 TENSION) 68 MMHG (79-93); SAMPLE Arterial; pH 7.37 (7.37-7.43)
[2017-03-28 04:06] LABS: BE (BASE EXCESS) -5.7 MEQ/L (0 +/- 2.5); HCO3 (ACTUAL BICARBONATE) 17.8 MEQ/L (23-27); INSTRUMENT SERIAL # 8083; METHEMOGLOBIN 0.2 % (0-3); MODE APRV; O2 CONTENT 16.4 VOL% (18-24); OPERATOR ID 16503; PCO2 (CO2 TENSION) 29 MMHG (35-45); PO2 (O2 TENSION) 100 MMHG (79-93); SAMPLE Arterial; pH 7.41 (7.37-7.43)
[2017-03-28 04:37] LABS: BASOPHILS 0 %; EOSINOPHILS 0 %; HEMOGLOBIN 11.3 g/dL (12.0-16.0); IMMATURE GRANULOCYTES 0.2 %; IMMATURE GRANULOCYTES ABSOLUTE 0.02 10/3/uL (0.0-0.11); LYMPHOCYTES 6.8 %; LYMPHOCYTES ABSOLUTE 0.63 10/3/uL (0.67-4.30); MEAN CORPUS HGB CONC 33.2 g/dL (32.0-36.0); MEAN CORPUSCULAR HEMOGLOB 27.2 pg (26.0-34.0); MEAN CORPUSCULAR VOLUME 81.7 fL (80-100); MEAN PLATELET VOLUME 12.1 fL (9.2-13.0); MONOCYTES 5.5 %; MONOCYTES ABSOLUTE 0.51 10/3/uL (0.21-1.20); NEUTROPHILS 87.5 %; NEUTROPHILS ABSOLUTE 8.12 10/3/uL (2.02-8.40); PLATELET COUNT 144 10/3/uL (150-400); RBC DISTRIBUTION WIDTH 14.5 % (12.0-16.0); RED CELL COUNT 4.16 10/6/uL (4.0-5.6); WHITE BLOOD CELLS 9.3 10/3/uL (4.5-10.5)
[2017-03-28 04:38] LABS: MANUAL DIFF NO %
[2017-03-28 04:49] LABS: BUN (BLOOD UREA NITROGEN) 29 MG/DL (6-23); CALCIUM, SERUM 7.9 MG/DL (8.5-10.4); CHLORIDE, SERUM 108 MMOL/L (96-112); CO2 (CARBON DIOXIDE) 22 MMOL/L (24-34); GFR AFRICAN AMERICAN 45 ML/MIN (>=60); GFR NON AFRICAN AMERICAN 39 ML/MIN (>=60); GLUCOSE, SERUM 205 MG/DL (60-99); POTASSIUM, SERUM 3.4 MMOL/L (3.5-5.3); SODIUM, SERUM 143 MMOL/L (135-148)
[2017-03-28 19:28] LABS: GLOMERULAR BASEMENT MEMBRANE <0.2 AI (<1.0)
[2017-03-29 03:44] LABS: BE (BASE EXCESS) -3.5 MEQ/L (0 +/- 2.5); CARBOXYHEMOGLOBIN 1.2 % (0-3); HCO3 (ACTUAL BICARBONATE) 25.9 MEQ/L (23-27); INSTRUMENT SERIAL # 8083; METHEMOGLOBIN 0.4 % (0-3); MODE CMV; OPERATOR ID 16503; PCO2 (CO2 TENSION) 70 MMHG (35-45); PO2 (O2 TENSION) 89 MMHG (79-93); SAMPLE Arterial; TIDAL VOLUME 400 ML; pH 7.19 (7.37-7.43)
[2017-03-29 05:00] LABS: BASOPHILS 0 %; EOSINOPHILS 0.1 %; EOSINOPHILS ABSOLUTE 0.01 10/3/uL (0.0-0.53); HEMATOCRIT 34.2 % (36.0-48.0); HEMOGLOBIN 10.9 g/dL (12.0-16.0); IMMATURE GRANULOCYTES 0.6 %; LYMPHOCYTES 4.3 %; LYMPHOCYTES ABSOLUTE 0.69 10/3/uL (0.67-4.30); MEAN CORPUS HGB CONC 31.9 g/dL (32.0-36.0); MEAN CORPUSCULAR HEMOGLOB 26.7 pg (26.0-34.0); MEAN CORPUSCULAR VOLUME 83.8 fL (80-100); MEAN PLATELET VOLUME 11.5 fL (9.2-13.0); MONOCYTES 5.3 %; MONOCYTES ABSOLUTE 0.86 10/3/uL (0.21-1.20); NEUTROPHILS 89.7 %; PLATELET COUNT 160 10/3/uL (150-400); RBC DISTRIBUTION WIDTH 15.3 % (12.0-16.0); RED CELL COUNT 4.08 10/6/uL (4.0-5.6)
[2017-03-29 05:01] LABS: WHITE BLOOD CELLS 16.2 10/3/uL (4.5-10.5)
[2017-03-29 05:02] LABS: MANUAL DIFF NO %
[2017-03-29 05:12] LABS: BUN (BLOOD UREA NITROGEN) 31 MG/DL (6-23); CALCIUM, SERUM 7.9 MG/DL (8.5-10.4); CHLORIDE, SERUM 108 MMOL/L (96-112); CREATININE 0.95 MG/DL (0.55-1.02); GFR AFRICAN AMERICAN 72 ML/MIN (>=60); GFR NON AFRICAN AMERICAN 62 ML/MIN (>=60); SODIUM, SERUM 140 MMOL/L (135-148)
[2017-03-29 05:20] LABS: CO2 (CARBON DIOXIDE) 27 MMOL/L (24-34); GLUCOSE, SERUM 131 MG/DL (60-99); PHOSPHORUS, SERUM 4.6 MG/DL (2.5-4.5); POTASSIUM, SERUM 4.8 MMOL/L (3.5-5.3)
[2017-03-29 05:49] LABS: BE (BASE EXCESS) -3.1 MEQ/L (0 +/- 2.5); CARBOXYHEMOGLOBIN 1.1 % (0-3); HCO3 (ACTUAL BICARBONATE) 23.9 MEQ/L (23-27); INSTRUMENT SERIAL # 8083; METHEMOGLOBIN 0.3 % (0-3); MODE CMV; O2 CONTENT 16.3 VOL% (18-24); OPERATOR ID 31061; PCO2 (CO2 TENSION) 51 MMHG (35-45); PO2 (O2 TENSION) 94 MMHG (79-93); SAMPLE Arterial; TIDAL VOLUME 400 ML; pH 7.29 (7.37-7.43)
[2017-03-29 06:09] LABS: PROCALCITONIN 0.79 ng/mL (<0.5)
[2017-03-29 13:01] LABS: BE (BASE EXCESS) 0.2 MEQ/L (0 +/- 2.5); CARBOXYHEMOGLOBIN 0.7 % (0-3); HCO3 (ACTUAL BICARBONATE) 26.1 MEQ/L (23-27); HEMOBLOGIN CONTENT 11.4 G/DL (12-16); INSTRUMENT SERIAL # 8083; METHEMOGLOBIN 0.3 % (0-3); MODE CMV; O2 CONTENT 14.5 VOL% (18-24); OPERATOR ID 14382; PCO2 (CO2 TENSION) 48 MMHG (35-45); PO2 (O2 TENSION) 60 MMHG (79-93); SAMPLE Arterial; TIDAL VOLUME 400 ML; pH 7.36 (7.37-7.43)
[2017-03-30 03:22] LABS: BASOPHILS 0 %; EOSINOPHILS 0 %; HEMATOCRIT 31.1 % (36.0-48.0); IMMATURE GRANULOCYTES 0.4 %; IMMATURE GRANULOCYTES ABSOLUTE 0.05 10/3/uL (0.0-0.11); LYMPHOCYTES 4.4 %; LYMPHOCYTES ABSOLUTE 0.61 10/3/uL (0.67-4.30); MEAN CORPUS HGB CONC 32.2 g/dL (32.0-36.0); MEAN CORPUSCULAR HEMOGLOB 26.7 pg (26.0-34.0); MEAN CORPUSCULAR VOLUME 83.2 fL (80-100); MEAN PLATELET VOLUME 11.7 fL (9.2-13.0); MONOCYTES 4.5 %; MONOCYTES ABSOLUTE 0.63 10/3/uL (0.21-1.20); NEUTROPHILS 90.7 %; PLATELET COUNT 159 10/3/uL (150-400); RBC DISTRIBUTION WIDTH 15.4 % (12.0-16.0); RED CELL COUNT 3.74 10/6/uL (4.0-5.6); WHITE BLOOD CELLS 13.9 10/3/uL (4.5-10.5)
[2017-03-30 03:26] LABS: MANUAL DIFF NO %
[2017-03-30 03:41] LABS: ALBUMIN 2.8 G/DL (3.5-5.0); CALCIUM, SERUM 7.8 MG/DL (8.5-10.4); CHLORIDE, SERUM 111 MMOL/L (96-112); CO2 (CARBON DIOXIDE) 26 MMOL/L (24-34); CREATININE 1.01 MG/DL (0.55-1.02); GFR AFRICAN AMERICAN 67 ML/MIN (>=60); GFR NON AFRICAN AMERICAN 58 ML/MIN (>=60); GLUCOSE, SERUM 127 MG/DL (60-99); POTASSIUM, SERUM 4.5 MMOL/L (3.5-5.3); SODIUM, SERUM 144 MMOL/L (135-148)
[2017-03-30 03:44] LABS: BUN (BLOOD UREA NITROGEN) 39 MG/DL (6-23); PHOSPHORUS, SERUM 3.3 MG/DL (2.5-4.5)
[2017-03-30 03:46] LABS: BE (BASE EXCESS) 0.2 MEQ/L (0 +/- 2.5); CARBOXYHEMOGLOBIN 1.3 % (0-3); HCO3 (ACTUAL BICARBONATE) 26.4 MEQ/L (23-27); HEMOBLOGIN CONTENT 10.9 G/DL (12-16); INSTRUMENT SERIAL # 8083; METHEMOGLOBIN 0.3 % (0-3); MODE CMV; O2 CONTENT 14.9 VOL% (18-24); OPERATOR ID 16503; PCO2 (CO2 TENSION) 50 MMHG (35-45); PO2 (O2 TENSION) 108 MMHG (79-93); SAMPLE Arterial; TIDAL VOLUME 400 ML; pH 7.34 (7.37-7.43)
[2017-03-30 09:22] LABS: BE (BASE EXCESS) -0.1 MEQ/L (0 +/- 2.5); CARBOXYHEMOGLOBIN 0.7 % (0-3); HCO3 (ACTUAL BICARBONATE) 25.4 MEQ/L (23-27); INSTRUMENT SERIAL # 8083; METHEMOGLOBIN 0.1 % (0-3); MODE CMV; O2 CONTENT 14.7 VOL% (18-24); OPERATOR ID 14382; PCO2 (CO2 TENSION) 45 MMHG (35-45); PO2 (O2 TENSION) 81 MMHG (79-93); SAMPLE Arterial; TIDAL VOLUME 400 ML; pH 7.37 (7.37-7.43)
[2017-03-30 22:20] LABS: ANCA <1:20 (()); MYELOPEROXIDASE ANTIBODY <0.2 AI (<1.0); PROTEINASE 3 ANTIBODY <0.2 AI (<1.0)
[2017-03-31 03:42] LABS: BE (BASE EXCESS) 1.3 MEQ/L (0 +/- 2.5); HCO3 (ACTUAL BICARBONATE) 26.4 MEQ/L (23-27); INSTRUMENT SERIAL # 8083; PCO2 (CO2 TENSION) 44 MMHG (35-45); PO2 (O2 TENSION) 76 MMHG (79-93)
[2017-03-31 03:43] LABS: CARBOXYHEMOGLOBIN 1.2 % (0-3); HEMOBLOGIN CONTENT 12.6 G/DL (12-16); METHEMOGLOBIN 0.3 % (0-3); MODE CMV; O2 CONTENT 16.6 VOL% (18-24); OPERATOR ID 17370; SAMPLE Arterial; TIDAL VOLUME 400 ML
[2017-03-31 04:31] LABS: BASOPHILS 0 %; EOSINOPHILS 0 %; HEMATOCRIT 31.6 % (36.0-48.0); HEMOGLOBIN 10.6 g/dL (12.0-16.0); IMMATURE GRANULOCYTES 0.3 %; IMMATURE GRANULOCYTES ABSOLUTE 0.03 10/3/uL (0.0-0.11); LYMPHOCYTES 8.5 %; LYMPHOCYTES ABSOLUTE 0.95 10/3/uL (0.67-4.30); MEAN CORPUS HGB CONC 33.5 g/dL (32.0-36.0); MEAN CORPUSCULAR HEMOGLOB 28.1 pg (26.0-34.0); MEAN CORPUSCULAR VOLUME 83.8 fL (80-100); MEAN PLATELET VOLUME 11.4 fL (9.2-13.0); MONOCYTES 12.1 %; MONOCYTES ABSOLUTE 1.36 10/3/uL (0.21-1.20); NEUTROPHILS 79.1 %; NEUTROPHILS ABSOLUTE 8.87 10/3/uL (2.02-8.40); PLATELET COUNT 160 10/3/uL (150-400); RBC DISTRIBUTION WIDTH 15.5 % (12.0-16.0); RED CELL COUNT 3.77 10/6/uL (4.0-5.6); WHITE BLOOD CELLS 11.2 10/3/uL (4.5-10.5)
[2017-03-31 04:33] LABS: MANUAL DIFF NO %
[2017-03-31 04:43] LABS: CALCIUM, SERUM 7.6 MG/DL (8.5-10.4); CHLORIDE, SERUM 112 MMOL/L (96-112); CO2 (CARBON DIOXIDE) 28 MMOL/L (24-34); CREATININE 1.08 MG/DL (0.55-1.02); GFR AFRICAN AMERICAN 62 ML/MIN (>=60); GFR NON AFRICAN AMERICAN 53 ML/MIN (>=60); GLUCOSE, SERUM 150 MG/DL (60-99); PHOSPHORUS, SERUM 3.4 MG/DL (2.5-4.5); POTASSIUM, SERUM 4.4 MMOL/L (3.5-5.3); SODIUM, SERUM 147 MMOL/L (135-148)
[2017-03-31 04:44] LABS: BUN (BLOOD UREA NITROGEN) 51 MG/DL (6-23)
[2017-04-01 04:32] LABS: BASOPHILS 0.1 %; BASOPHILS ABSOLUTE 0.01 10/3/uL (0.0-0.16); EOSINOPHILS 0.7 %; EOSINOPHILS ABSOLUTE 0.09 10/3/uL (0.0-0.53); HEMATOCRIT 32.7 % (36.0-48.0); HEMOGLOBIN 10.4 g/dL (12.0-16.0); IMMATURE GRANULOCYTES 1.3 %; IMMATURE GRANULOCYTES ABSOLUTE 0.17 10/3/uL (0.0-0.11); LYMPHOCYTES ABSOLUTE 1.58 10/3/uL (0.67-4.30); MANUAL DIFF NO %; MEAN CORPUS HGB CONC 31.8 g/dL (32.0-36.0); MEAN CORPUSCULAR HEMOGLOB 27.4 pg (26.0-34.0); MEAN CORPUSCULAR VOLUME 86.3 fL (80-100); MEAN PLATELET VOLUME 10.8 fL (9.2-13.0); MONOCYTES 15.2 %; NEUTROPHILS 70.7 %; NEUTROPHILS ABSOLUTE 9.28 10/3/uL (2.02-8.40); PLATELET COUNT 151 10/3/uL (150-400); RBC DISTRIBUTION WIDTH 15.8 % (12.0-16.0); RED CELL COUNT 3.79 10/6/uL (4.0-5.6); WHITE BLOOD CELLS 13.1 10/3/uL (4.5-10.5)
[2017-04-01 04:41] LABS: CALCIUM, SERUM 7.6 MG/DL (8.5-10.4); CHLORIDE, SERUM 114 MMOL/L (96-112); CO2 (CARBON DIOXIDE) 31 MMOL/L (24-34); CREATININE 0.87 MG/DL (0.55-1.02); GFR AFRICAN AMERICAN 80 ML/MIN (>=60); GFR NON AFRICAN AMERICAN 69 ML/MIN (>=60); GLUCOSE, SERUM 141 MG/DL (60-99); POTASSIUM, SERUM 4.4 MMOL/L (3.5-5.3); SODIUM, SERUM 149 MMOL/L (135-148)
[2017-04-01 04:42] LABS: BUN (BLOOD UREA NITROGEN) 43 MG/DL (6-23)
[2017-04-01 05:01] LABS: PROCALCITONIN 0.08 ng/mL (<0.5)
[2017-04-02 05:02] LABS: HEMATOCRIT 32.8 % (36.0-48.0); HEMOGLOBIN 10.3 g/dL (12.0-16.0); MEAN CORPUS HGB CONC 31.4 g/dL (32.0-36.0); MEAN CORPUSCULAR HEMOGLOB 27.3 pg (26.0-34.0); MEAN PLATELET VOLUME 12.2 fL (9.2-13.0); PLATELET COUNT 153 10/3/uL (150-400); RBC DISTRIBUTION WIDTH 15.8 % (12.0-16.0); RED CELL COUNT 3.77 10/6/uL (4.0-5.6); WHITE BLOOD CELLS 11.2 10/3/uL (4.5-10.5)
[2017-04-02 05:05] LABS: MANUAL DIFF YES %
[2017-04-02 05:14] LABS: CALCIUM, SERUM 8.3 MG/DL (8.5-10.4); CHLORIDE, SERUM 113 MMOL/L (96-112); CO2 (CARBON DIOXIDE) 30 MMOL/L (24-34); GFR AFRICAN AMERICAN 105 ML/MIN (>=60); GFR NON AFRICAN AMERICAN 90 ML/MIN (>=60); POTASSIUM, SERUM 4.1 MMOL/L (3.5-5.3); SODIUM, SERUM 150 MMOL/L (135-148)
[2017-04-02 05:17] LABS: BUN (BLOOD UREA NITROGEN) 28 MG/DL (6-23); GLUCOSE, SERUM 99 MG/DL (60-99)
[2017-04-02 05:43] LABS: BAND NEUTROPHILS 8 %; HYPOCHROMIA 1+ (3-10/OIF) (0-2/OIF); LYMPHOCYTES 15 %; LYMPHOCYTES ABSOLUTE (CALC) 1.68 10/3/uL (0.67-4.30); MONOCYTES 10 %; MONOCYTES ABSOLUTE (CALC) 1.12 10/3/uL (0.21-1.20); PLATELET ESTIMATE ADQ (ADEQUATE); SEGMENTED NEUTROPHIL (0) 67 %; TOTAL NUCLEATED CELLS 100
[2017-04-02 05:44] LABS: MACROCYTES 1+ (5-10/OIF) (0-5/OIF); POLYCHROMASIA 1+ (2-5/OIF) (0-1/OIF)
[2017-04-03 05:03] LABS: BASOPHILS 0.1 %; BASOPHILS ABSOLUTE 0.01 10/3/uL (0.0-0.16); EOSINOPHILS 7.2 %; EOSINOPHILS ABSOLUTE 0.77 10/3/uL (0.0-0.53); HEMATOCRIT 32.8 % (36.0-48.0); HEMOGLOBIN 10.3 g/dL (12.0-16.0); IMMATURE GRANULOCYTES 0.9 %; LYMPHOCYTES 16.1 %; LYMPHOCYTES ABSOLUTE 1.71 10/3/uL (0.67-4.30); MEAN CORPUS HGB CONC 31.4 g/dL (32.0-36.0); MEAN CORPUSCULAR HEMOGLOB 27.2 pg (26.0-34.0); MEAN CORPUSCULAR VOLUME 86.8 fL (80-100); MEAN PLATELET VOLUME 11.6 fL (9.2-13.0); MONOCYTES 11.5 %; MONOCYTES ABSOLUTE 1.22 10/3/uL (0.21-1.20); NEUTROPHILS 64.2 %; NEUTROPHILS ABSOLUTE 6.84 10/3/uL (2.02-8.40); PLATELET COUNT 141 10/3/uL (150-400); RBC DISTRIBUTION WIDTH 15.8 % (12.0-16.0); RED CELL COUNT 3.78 10/6/uL (4.0-5.6); WHITE BLOOD CELLS 10.7 10/3/uL (4.5-10.5)
[2017-04-03 05:05] LABS: MANUAL DIFF NO %
[2017-04-03 05:16] LABS: BUN (BLOOD UREA NITROGEN) 24 MG/DL (6-23); CALCIUM, SERUM 8.3 MG/DL (8.5-10.4); CHLORIDE, SERUM 109 MMOL/L (96-112); CO2 (CARBON DIOXIDE) 31 MMOL/L (24-34); CREATININE 0.86 MG/DL (0.55-1.02); GFR AFRICAN AMERICAN 82 ML/MIN (>=60); GFR NON AFRICAN AMERICAN 70 ML/MIN (>=60); GLUCOSE, SERUM 110 MG/DL (60-99); POTASSIUM, SERUM 3.6 MMOL/L (3.5-5.3); SODIUM, SERUM 146 MMOL/L (135-148)
[2017-04-03 08:17] LABS: BE (BASE EXCESS) 6.6 MEQ/L (0 +/- 2.5); HCO3 (ACTUAL BICARBONATE) 29.9 MEQ/L (23-27); HEMOBLOGIN CONTENT 11.2 G/DL (12-16); INSTRUMENT SERIAL # 8087; METHEMOGLOBIN 0.1 % (0-3); O2 CONTENT 13.2 VOL% (18-24); OPERATOR ID 14335; PCO2 (CO2 TENSION) 38 MMHG (35-45); PO2 (O2 TENSION) 49 MMHG (79-93); SAMPLE Arterial; pH 7.52 (7.37-7.43)
[2017-04-03 08:18] LABS: ALLENS TEST Pos
[2017-04-03 11:28] LABS: ALLENS TEST Pos; BE (BASE EXCESS) 6.8 MEQ/L (0 +/- 2.5); CARBOXYHEMOGLOBIN 1.4 % (0-3); HCO3 (ACTUAL BICARBONATE) 31.6 MEQ/L (23-27); HEMOBLOGIN CONTENT 11.1 G/DL (12-16); INSTRUMENT SERIAL # 8083; METHEMOGLOBIN 0.1 % (0-3); O2 CONTENT 13.3 VOL% (18-24); PCO2 (CO2 TENSION) 46 MMHG (35-45); PO2 (O2 TENSION) 53 MMHG (79-93); SAMPLE Arterial; pH 7.45 (7.37-7.43)
[2017-04-03 14:12] LABS: ALLENS TEST Pos; BE (BASE EXCESS) 2.4 MEQ/L (0 +/- 2.5); CARBOXYHEMOGLOBIN 1.1 % (0-3); HCO3 (ACTUAL BICARBONATE) 26.5 MEQ/L (23-27); HEMOBLOGIN CONTENT 10.8 G/DL (12-16); INSTRUMENT SERIAL # 8083; METHEMOGLOBIN 0.2 % (0-3); MODE CMV; O2 CONTENT 15.6 VOL% (18-24); PCO2 (CO2 TENSION) 39 MMHG (35-45); PO2 (O2 TENSION) 257 MMHG (79-93); SAMPLE Arterial; TIDAL VOLUME 400 ML; pH 7.45 (7.37-7.43)
[2017-04-04 04:14] LABS: BASOPHILS 0.1 %; BASOPHILS ABSOLUTE 0.01 10/3/uL (0.0-0.16); EOSINOPHILS 6.6 %; EOSINOPHILS ABSOLUTE 1.14 10/3/uL (0.0-0.53); HEMATOCRIT 30.5 % (36.0-48.0); HEMOGLOBIN 9.7 g/dL (12.0-16.0); IMMATURE GRANULOCYTES 0.6 %; LYMPHOCYTES 11.1 %; MEAN CORPUS HGB CONC 31.8 g/dL (32.0-36.0); MEAN CORPUSCULAR HEMOGLOB 27.3 pg (26.0-34.0); MEAN CORPUSCULAR VOLUME 85.9 fL (80-100); MEAN PLATELET VOLUME 11.3 fL (9.2-13.0); MONOCYTES 8.4 %; MONOCYTES ABSOLUTE 1.45 10/3/uL (0.21-1.20); NEUTROPHILS 73.2 %; NEUTROPHILS ABSOLUTE 12.58 10/3/uL (2.02-8.40); PLATELET COUNT 164 10/3/uL (150-400); RBC DISTRIBUTION WIDTH 15.2 % (12.0-16.0); RED CELL COUNT 3.55 10/6/uL (4.0-5.6)
[2017-04-04 04:17] LABS: MANUAL DIFF NO %; WHITE BLOOD CELLS 17.2 10/3/uL (4.5-10.5)
[2017-04-04 04:28] LABS: BUN (BLOOD UREA NITROGEN) 23 MG/DL (6-23); CALCIUM, SERUM 7.9 MG/DL (8.5-10.4); CHLORIDE, SERUM 108 MMOL/L (96-112); CO2 (CARBON DIOXIDE) 30 MMOL/L (24-34); CREATININE 0.84 MG/DL (0.55-1.02); GFR AFRICAN AMERICAN 84 ML/MIN (>=60); GFR NON AFRICAN AMERICAN 72 ML/MIN (>=60); PHOSPHORUS, SERUM 3.6 MG/DL (2.5-4.5); POTASSIUM, SERUM 4.2 MMOL/L (3.5-5.3); SODIUM, SERUM 146 MMOL/L (135-148)
[2017-04-04 04:29] LABS: GLUCOSE, SERUM 146 MG/DL (60-99)
[2017-04-04 14:33] LABS: BUN (BLOOD UREA NITROGEN) 21 MG/DL (6-23); CALCIUM, SERUM 8.1 MG/DL (8.5-10.4); CHLORIDE, SERUM 104 MMOL/L (96-112); CO2 (CARBON DIOXIDE) 32 MMOL/L (24-34); CREATININE 0.88 MG/DL (0.55-1.02); GFR AFRICAN AMERICAN 79 ML/MIN (>=60); GFR NON AFRICAN AMERICAN 68 ML/MIN (>=60); GLUCOSE, SERUM 156 MG/DL (60-99); POTASSIUM, SERUM 3.8 MMOL/L (3.5-5.3); SODIUM, SERUM 144 MMOL/L (135-148)
[2017-04-05 04:04] LABS: CARBOXYHEMOGLOBIN 0.6 % (0-3); HCO3 (ACTUAL BICARBONATE) 30.6 MEQ/L (23-27); HEMOBLOGIN CONTENT 10.3 G/DL (12-16); INSTRUMENT SERIAL # 8083; METHEMOGLOBIN 0.2 % (0-3); O2 CONTENT 13.9 VOL% (18-24); PCO2 (CO2 TENSION) 44 MMHG (35-45); PO2 (O2 TENSION) 81 MMHG (79-93); pH 7.46 (7.37-7.43)
[2017-04-05 04:05] LABS: ALLENS TEST Pos; MODE CMV; OPERATOR ID 16503; SAMPLE Arterial; TIDAL VOLUME 400 ML
[2017-04-05 05:05] LABS: BASOPHILS 0.1 %; BASOPHILS ABSOLUTE 0.01 10/3/uL (0.0-0.16); EOSINOPHILS 4.6 %; EOSINOPHILS ABSOLUTE 0.63 10/3/uL (0.0-0.53); HEMATOCRIT 30.2 % (36.0-48.0); HEMOGLOBIN 9.6 g/dL (12.0-16.0); IMMATURE GRANULOCYTES 0.4 %; IMMATURE GRANULOCYTES ABSOLUTE 0.06 10/3/uL (0.0-0.11); LYMPHOCYTES 11.3 %; LYMPHOCYTES ABSOLUTE 1.54 10/3/uL (0.67-4.30); MEAN CORPUS HGB CONC 31.8 g/dL (32.0-36.0); MEAN CORPUSCULAR HEMOGLOB 27.6 pg (26.0-34.0); MEAN CORPUSCULAR VOLUME 86.8 fL (80-100); MEAN PLATELET VOLUME 11.2 fL (9.2-13.0); MONOCYTES 7.8 %; MONOCYTES ABSOLUTE 1.07 10/3/uL (0.21-1.20); NEUTROPHILS 75.8 %; NEUTROPHILS ABSOLUTE 10.33 10/3/uL (2.02-8.40); PLATELET COUNT 170 10/3/uL (150-400); RBC DISTRIBUTION WIDTH 14.9 % (12.0-16.0); RED CELL COUNT 3.48 10/6/uL (4.0-5.6); WHITE BLOOD CELLS 13.6 10/3/uL (4.5-10.5)
[2017-04-05 05:12] LABS: MANUAL DIFF NO %
[2017-04-05 05:17] LABS: BUN (BLOOD UREA NITROGEN) 20 MG/DL (6-23); CALCIUM, SERUM 8.1 MG/DL (8.5-10.4); CHLORIDE, SERUM 103 MMOL/L (96-112); CO2 (CARBON DIOXIDE) 32 MMOL/L (24-34); CREATININE 0.76 MG/DL (0.55-1.02); GFR AFRICAN AMERICAN 95 ML/MIN (>=60); GFR NON AFRICAN AMERICAN 82 ML/MIN (>=60); GLUCOSE, SERUM 157 MG/DL (60-99); SODIUM, SERUM 141 MMOL/L (135-148)
[2017-04-05 06:16] LABS: PROCALCITONIN 0.15 ng/mL (<0.5)
[2017-04-05 08:18] LABS: FREE T4 1.38 NG/DL (0.76-1.46); ULTRASENSITIVE TSH 1.97 MCIU/ML (0.358-3.740)
[2017-04-06 03:53] LABS: ALLENS TEST Pos; BE (BASE EXCESS) 4.9 MEQ/L (0 +/- 2.5); CARBOXYHEMOGLOBIN 0.6 % (0-3); HCO3 (ACTUAL BICARBONATE) 30.2 MEQ/L (23-27); HEMOBLOGIN CONTENT 10.3 G/DL (12-16); INSTRUMENT SERIAL # 8083; METHEMOGLOBIN 0.3 % (0-3); MODE CMV; O2 CONTENT 13.5 VOL% (18-24); OPERATOR ID 17589; PCO2 (CO2 TENSION) 48 MMHG (35-45); PO2 (O2 TENSION) 72 MMHG (79-93); SAMPLE Arterial; TIDAL VOLUME 400 ML; pH 7.42 (7.37-7.43)
[2017-04-06 04:25] LABS: HEMATOCRIT 29.3 % (36.0-48.0); HEMOGLOBIN 9.4 g/dL (12.0-16.0); MEAN CORPUS HGB CONC 32.1 g/dL (32.0-36.0); MEAN CORPUSCULAR HEMOGLOB 27.8 pg (26.0-34.0); MEAN CORPUSCULAR VOLUME 86.7 fL (80-100); MEAN PLATELET VOLUME 11.6 fL (9.2-13.0); PLATELET COUNT 190 10/3/uL (150-400); RBC DISTRIBUTION WIDTH 14.8 % (12.0-16.0); RED CELL COUNT 3.38 10/6/uL (4.0-5.6); WHITE BLOOD CELLS 10.5 10/3/uL (4.5-10.5)
[2017-04-06 04:26] LABS: BUN (BLOOD UREA NITROGEN) 18 MG/DL (6-23); CALCIUM, SERUM 8.3 MG/DL (8.5-10.4); CHLORIDE, SERUM 103 MMOL/L (96-112); CO2 (CARBON DIOXIDE) 30 MMOL/L (24-34); CREATININE 0.72 MG/DL (0.55-1.02); GFR AFRICAN AMERICAN 101 ML/MIN (>=60); GFR NON AFRICAN AMERICAN 87 ML/MIN (>=60); GLUCOSE, SERUM 136 MG/DL (60-99); MANUAL DIFF YES %; PHOSPHORUS, SERUM 3.7 MG/DL (2.5-4.5); POTASSIUM, SERUM 4.2 MMOL/L (3.5-5.3); SODIUM, SERUM 141 MMOL/L (135-148)
[2017-04-06 04:51] LABS: BAND NEUTROPHILS 6 %; EOSINOPHILS 4 %; EOSINOPHILS ABSOLUTE (CALC) 0.42 10/3/uL (0.0-0.53); LYMPHOCYTES 14 %; LYMPHOCYTES ABSOLUTE (CALC) 1.47 10/3/uL (0.67-4.30); MONOCYTES 8 %; MONOCYTES ABSOLUTE (CALC) 0.84 10/3/uL (0.21-1.20); NEUTROPHILS ABSOLUTE (CALC) 7.77 10/3/uL (2.02-8.40); PLATELET ESTIMATE ADQ (ADEQUATE); RBC MORPHOLOGY NORM (NORMAL); SEGMENTED NEUTROPHIL (0) 68 %; TOTAL NUCLEATED CELLS 100
[2017-04-07 07:02] LABS: BASOPHILS 0.1 %; BASOPHILS ABSOLUTE 0.01 10/3/uL (0.0-0.16); EOSINOPHILS 0.3 %; EOSINOPHILS ABSOLUTE 0.05 10/3/uL (0.0-0.53); HEMATOCRIT 28.6 % (36.0-48.0); HEMOGLOBIN 9.2 g/dL (12.0-16.0); IMMATURE GRANULOCYTES 0.5 %; IMMATURE GRANULOCYTES ABSOLUTE 0.09 10/3/uL (0.0-0.11); LYMPHOCYTES 3.3 %; LYMPHOCYTES ABSOLUTE 0.63 10/3/uL (0.67-4.30); MANUAL DIFF NO %; MEAN CORPUS HGB CONC 32.2 g/dL (32.0-36.0); MEAN CORPUSCULAR HEMOGLOB 27.6 pg (26.0-34.0); MEAN CORPUSCULAR VOLUME 85.9 fL (80-100); MEAN PLATELET VOLUME 10.9 fL (9.2-13.0); MONOCYTES 6.5 %; MONOCYTES ABSOLUTE 1.25 10/3/uL (0.21-1.20); NEUTROPHILS 89.3 %; NEUTROPHILS ABSOLUTE 17.19 10/3/uL (2.02-8.40); PLATELET COUNT 204 10/3/uL (150-400); RBC DISTRIBUTION WIDTH 14.6 % (12.0-16.0); RED CELL COUNT 3.33 10/6/uL (4.0-5.6); WHITE BLOOD CELLS 19.2 10/3/uL (4.5-10.5)
[2017-04-07 07:14] LABS: BUN (BLOOD UREA NITROGEN) 22 MG/DL (6-23); CHLORIDE, SERUM 105 MMOL/L (96-112); CO2 (CARBON DIOXIDE) 28 MMOL/L (24-34); CREATININE 0.81 MG/DL (0.55-1.02); GFR AFRICAN AMERICAN 88 ML/MIN (>=60); GFR NON AFRICAN AMERICAN 76 ML/MIN (>=60); GLUCOSE, SERUM 197 MG/DL (60-99); PHOSPHORUS, SERUM 3.8 MG/DL (2.5-4.5); POTASSIUM, SERUM 4.3 MMOL/L (3.5-5.3); SODIUM, SERUM 141 MMOL/L (135-148)
== END 2017-04-07 21:11 | disposition hospice, home (50) | DRG 207 ==
LOC: ENRESERV → ENRESERVDT → ENRESERVTM → ER 16:40 → MIC 21:58 → 6NO 21:58 → MIC 03-27 06:16
PROVIDERS: Emergency Medicine; Internal Medicine Critical Care Medicine; Internal Medicine Pulmonary Disease; Physician Assistant Medical
PROC: 06HM33Z Insertion of Infusion Device into Right Femoral Vein, Percutaneous Approach (ICD-10-PCS; principal; 2017-03-27)
PROC: 5A1955Z Respiratory Ventilation, Greater than 96 Consecutive Hours (ICD-10-PCS; 2017-03-27)
PROC: B51B1ZA Fluoroscopy of Right Lower Extremity Veins using Low Osmolar Contrast, Guidance (ICD-10-PCS; 2017-03-27)
PROC: 4A133BC Monitoring of Arterial Pressure, Coronary, Percutaneous Approach (ICD-10-PCS; 2017-03-27)
PROC: 0BJ08ZZ Inspection of Tracheobronchial Tree, Via Natural or Artificial Opening Endoscopic (ICD-10-PCS; 2017-03-27)
PROC: 0BH17EZ Insertion of Endotracheal Airway into Trachea, Via Natural or Artificial Opening (ICD-10-PCS; 2017-03-27)
PROC: 02HV33Z Insertion of Infusion Device into Superior Vena Cava, Percutaneous Approach (ICD-10-PCS; 2017-03-29)
PROC: 0BH17EZ Insertion of Endotracheal Airway into Trachea, Via Natural or Artificial Opening (ICD-10-PCS; 2017-04-03)
DX: J84.112 Idiopathic pulmonary fibrosis (principal); R57.8 Other shock; J96.21 Acute and chronic respiratory failure with hypoxia; I24.8 Other forms of acute ischemic heart disease; I50.30 Unspecified diastolic (congestive) heart failure; R04.2 Hemoptysis; E11.9 Type 2 diabetes mellitus without complications; I25.10 Atherosclerotic heart disease of native coronary artery without angina pectoris; Z95.1 Presence of aortocoronary bypass graft; I73.9 Peripheral vascular disease, unspecified
CPT/HCPCS: 31720; 36569; 36600; 71010; 71275; 74000; 75726; 80048; 80053; 80069; 82330; 82533; 82550; 82553; 82803; 82805; 82947; 82962; 83516; 83516-59; 83605; 83735; 83880; 84100; 84132; 84145; 84295; 84439; 84443; 84484; 85014; 85025; 85610; 85652; 85730; 86160; 86255; 87070; 87205; 87449; 87641; 92610-GN; 93005; 93306; 94002; 94003; 94640; 94660; 97162-GP; 99285; A9270-GY; C1751; C1894; C9113; G8978-CM-GP; G8979-CL-GP; G8996-CJ-GN; G8997-CJ-GN; G8998-CJ-GN; J0360; J0692; J1630; J1720; J2405; J2930; J3010; J3370; J3475; J7189; Q9967